=== PATIENT | female | born 1995 | race Caucasian/White ===

== ENCOUNTER 2016-09-15 14:48 | Emergency (ER) | payer OTHER ==
[~2016-09-15 14:48] MED LIST: ABILIFY5 MG PO; ADDERALL PO; ADVAIR 1001 DISK W/D PO; ADVAIR 2501 DISK W/D PO; ALBUTEROL17 GM INH; ALPRAZOLAM PO; AURALGAN OTIC S10 M1 AD; BACTRIM DS TABL1 TA1 PO; BACTRIM DS TABL1 TAB PO; BENTYL20 MG PO; CELEXA PO; CERUMENEX OT; CIPRO PO; CLARITIN10 MG PO; DEPAKOTE ER PO; DEPAKOTE PO; DESYREL50 MG PO; DICYCLOMINE HCL20 MG PO; DIFLUCAN PO; ELIMITE60 GM TOP; IBUPROFEN PO; IBUPROFEN800 MG PO; KEFLEX500 M1 PO; LEVAQUIN PO; LORTAB 7.5-5001 TAB; MACROBID100 MG PO; NASONEX17 GM; NO MEDICATIONS; ORUDIS75 M1 DOB; PHENERGAN25 M1; PHENERGAN25 M1 PO; PYRIDIUM PO; RISPERIDONE PO; SINGULAIR PO; SUDAFED PO; TRAZODONE PO; VYVANCE; VYVANSE10 MG; VYVANSE20 MG PO; VYVANSE30 MG PO; ZITHROMAX PO; ZITHROMAX200 MG/5 M PO; ZOFRAN ODT4 MG SL; ZOLOFT50 MG PO
[2016-09-15 15:11] LABS: URINE APPEARANCE CLEAR; URINE BILIRUBIN NEG (NEG); URINE COLOR YELLOW; URINE GLUCOSE NEG (NORM); URINE KETONE NEG (NEG); URINE LEUKOCYTE ESTERASE NEG (NEG); URINE NITRATE NEG (NEG); URINE PH 7.5 (5-8); URINE PROTEIN NEG (NEG); URINE SOURCE CLEAN CATCH; URINE SPECIFIC GRAVITY 1.015 (1.003-1.035); URINE UROBILINOGEN 0.2 MG/DL (NORM)
[2016-09-15 15:13] LABS: MICRO INDICATED? NO; URINE BLOOD NEG (NEG)
== END 2016-09-15 16:07 | disposition home or self-care (01) ==
LOC: SED 14:48
PROVIDERS: Nurse Practitioner
DX: R30.0 Dysuria (principal); Z88.0 Allergy status to penicillin; Z88.1 Allergy status to other antibiotic agents; Z91.040 Latex allergy status
CPT/HCPCS: 81003; 99283